=== PATIENT | male | born 1990 | race Caucasian/White ===

== ENCOUNTER 2017-01-03 11:17 | Emergency (ER) | payer OTHER | END 2017-01-03 12:18 | disposition home or self-care (01) | LOC: D.ER 11:17 | DX: K02.9 Dental caries, unspecified (principal); K08.89 Other specified disorders of teeth and supporting structures; F17.200 Nicotine dependence, unspecified, uncomplicated ==

== ENCOUNTER 2017-01-04 11:36 | Emergency (ER) | payer OTHER | END 2017-01-04 12:56 | disposition home or self-care (01) | LOC: D.ER 11:36 | DX: K02.9 Dental caries, unspecified (principal); K08.89 Other specified disorders of teeth and supporting structures ==

== ENCOUNTER 2017-01-11 19:37 | Emergency (ER) | payer OTHER | END 2017-01-11 21:37 | disposition home or self-care (01) | LOC: D.ER 19:37 | DX: K04.7 Periapical abscess without sinus (principal); K02.9 Dental caries, unspecified; K08.89 Other specified disorders of teeth and supporting structures; F17.200 Nicotine dependence, unspecified, uncomplicated ==